=== PATIENT | female | born 1975 | race Caucasian/White ===

== ENCOUNTER 2017-06-05 22:49 | Emergency (ER) | payer BC ==
[~2017-06-05 22:49] MED LIST: Donnatal Elixir 16.2 MG/5 ML UDCUP ONE; Iopamidol 370 76% 100 ML VIAL ONE; Sodium Chloride 0.9% 1,000 ML BAG ONE
[2017-06-05] MEDS ORDERED: Ketorolac Tromethamine 30 MG/ML VIAL ONE (23:26)
[2017-06-05] MEDS ORDERED: Ondansetron HCl/PF 4 MG/2 ML Vial ONE (23:26)
--- NOTE | 2017-06-05 23:30 | RAD ---
PORTABLE AP CHEST X-RAY: 06/05/2017 HISTORY: Severe epigastric abdominal pain. FINDINGS: The cardiac silhouette and pulmonary vasculature are within normal limits. The lungs are clear. The osseous structures are intact. IMPRESSION: No acute cardiopulmonary process. POS: [facility]
[2017-06-05 23:42] LABS: Bilirubin Small (Negative); Blood, Urine Large (Negative); Clarity Slightly Cloudy (Clear); Glucose, Urine (Dipstick) Negative (Negative); Leukocyte Trace (Negative); Nitrite Negative (Negative); Protein, Urine (Dipstick) Trace mg/dL (Neg-Trace); pH, Urine 6.5 (5.0-9.0)
[2017-06-05] MEDS ORDERED: Mag-Al Plus 1200 MG/1200 MG/120 MG/30 ML UDCUP ONE (23:45)
[2017-06-05] MEDS ORDERED: Donnatal Elixir 16.2 MG/5 ML UDCUP ONE (23:45)
[2017-06-05] MEDS ORDERED: Morphine 10 MG/ML VIAL ONE (23:45)
[2017-06-05] MEDS ORDERED: diphenhydrAMINE 50 MG/ML VIAL ONE ×2 (23:45→23:47)
[2017-06-05] MEDS ORDERED: Lidocaine Viscous Sol 2% 15 ml UD Cup ONE (23:45)
[2017-06-05 23:56] LABS: Bacteria/HPF 3+ HPF (None Seen); RBC/HPF 21-50 HPF (0-3)
[2017-06-05 23:56] LABS: #Basophils 0.1 thou/uL (0.0-0.2); #Eosinphils 0.1 thou/uL (0.0-0.7); #Lymphocytes 1.4 thou/uL (1.20-3.40); #Monocytes 0.7 thou/uL (0.11-0.59); #Neutrophils 7.2 thou/uL (1.40-6.50); %Basophils 0.7 % (0.0-1.0); %Eosinophils 0.8 % (0.0-10.0); %Neutrophils 76.6 % (42.0-75.0); Mean Corpuscular HGB CONC 34.3 g/dL (32.0-36.0); Mean Corpuscular Hemoglobin 29.7 pg (27.0-31.0); Mean Corpuscular Volume 86.6 fl (81.0-99.0); Mean Platelet Volume 8.5 fL (7.4-10.4); Platelet Count 232 thou/uL (130-400); RBC Distribution Width 12.1 % (11.5-14.5); Red Blood Cell (RBC) Count 5.04 mill/uL (4.20-5.40); White Blood Cell (WBC) Count 9.4 thou/uL (4.8-10.8)
[2017-06-05 23:58] LABS: ALT (SGPT) 12 U/L (8-55); AST (SGOT) 16 U/L (5-34); Albumin 4.4 g/dL (3.5-5.0); Alkaline Phosphatase 47 U/L (40-150); Anion Gap 17 mmol/L (10-20); BUN (Urea Nitrogen) 17 mg/dL (7.0-18.7); Bilirubin, Total 0.7 mg/dL (0.2-1.2); Calc. Creatinine Clearance 0 mL/min (70-130); Calcium 10.2 mg/dL (7.8-10.44); Carbon Dioxide 23 mmol/L (22-29); Chloride 105 mmol/L (98-107); Estimated GFR-MDRD 84; Globulin 2.9 g/dL (2.4-3.5); Glucose 103 mg/dL (70-105); Lipase 23 U/L (8-78); Potassium 3.5 mmol/L (3.5-5.1); Protein, Total 7.3 g/dL (6.0-8.3); Sodium 141 mmol/L (136-145)
--- NOTE | 2017-06-06 00:15 | CT ---
CT ABDOMEN AND PELVIS WITH IV CONTRAST: 06/05/2017 HISTORY: Right upper quadrant abdominal pain. Gallbladder disease. COMPARISON: None available. FINDINGS: The lung bases are clear. The liver, spleen, pancreas, bilateral adrenal glands, kidneys, and abdominal aorta demonstrate a nor mal CT appearance. The urinary bladder is completely decompressed. There are low density areas and heterogeneity involving the uterus, with a low density mass-like stru cture seen at the posterior aspect, lower uterine segment, measuring 3.3 cm. Findings are likely rel ated to a fibroid uterus. There is a low density structure seen associated with the right ovary, measuring 2.6 cm, which may re present a right ovarian cyst. There is a small amount of free fluid in the cul-de-sac. The appendix is visualized and is normal in caliber. There are nonspecific fluid-filled loops of small bowel, which are at the upper limits of normal; manuela e of the bowel loops within the distal ileum do appear to also demonstrate mild wall thickening, and there is adjacent mild inflammatory stranding and fluid present. Findings could be related to enteri tis. There is no fluid collection or lymphadenopathy seen in the abdomen or pelvis. No inflammatory stranding is seen adjacent to the gallbladder, but ultrasound examination would be a better study of choice for evaluation of the gallbladder. The osseous structures appear intact. IMPRESSION: 1. Nonspecific, mildly prominent, fluid filled loops of small bowel involving the ileum. Just dista l to these areas of fluid filled small bowel, there are loops of bowel that are not particularly dila yesenia, but the heart are mildly thickened. Also adjacent to these loops of bowel, there is mild inflam matory stranding and edema seen. These findings may be related to enteritis or possibly inflammatory bowel disease. 2. No CT evidence of appendicitis. 3. Fibroid uterus. 4. Probable right ovarian cyst. 5. Small amount of free fluid in the pelvis. POS: [facility]
== END 2017-06-06 01:00 | disposition home or self-care (01) ==
LOC: MADERS 22:49
DX: D25.9 Leiomyoma of uterus, unspecified (principal); N83.201 Unspecified ovarian cyst, right side; R10.13 Epigastric pain; N39.0 Urinary tract infection, site not specified; I10 Essential (primary) hypertension
CPT/HCPCS: 36415; 71045; 74177; 80053; 81001; 82150; 83690; 85025; 87086; 96361; 96374; 96375; J1200; J1885; J2270; J2405; J7050